=== PATIENT | male | born 1950 | race Caucasian/White ===

== ENCOUNTER 2024-11-19 07:15 | Day surgery (SDC) | payer MEDICARE, OTHER ==
[~2024-11-19] VITALS: Ht 175.3 cm; Wt 77.7 kg
[~2024-11-19 07:15] MED LIST: ALEVE220 M1; AMLODIPINE BES2.5 MG PO; CEFAZOLIN SODIUM 2 GM/20 ML SYR IV SCH; EZETIMIBE-SIMV1 EACH PO; IBLOOD GLUCOSE TEST STRIP 1 EA TEST VI PRN; ISOSORBIDE MONO30 MG PO; LACTATED RINGER'S 1,000 ML IV SCH; LEVOTHYROXINE100 MC2 PO; LIDOCAINE HCL 1% 5 ML SDV INJ ONE; LIPITOR40 MG PO; LOW DOSE ASPIRI81 MG PO
[2024-11-19 07:48] VITALS: BP 126/66
[2024-11-19] MEDS ORDERED: MIDAZOLAM HCL 2 MG/2 ML VIAL ONE (07:53)
[2024-11-19] MEDS ORDERED: Ropivacaine HCl 0.5% 30 ML VIAL ONE (07:54)
[2024-11-19] MEDS ORDERED: DEXAMETHASONE SOD PHOS 4 MG/ML VIAL ONE (07:54)
[2024-11-19] MEDS ORDERED: dexmedeTOMIDine HCl 200 MCG/2 ML VIAL ONE (07:54)
[2024-11-19] MEDS ORDERED: LIDOCAINE HCL 2% 5 ML SDV ONE ×2 (07:54→09:33)
--- NOTE | 2024-11-19 07:57 | NUR ---
AT BS. MAY GO TO [place].
--- NOTE | 2024-11-19 09:24 | NUR ---
JOY AND DR ART HAVE BEEN IN TO TALK WITH PT.
[2024-11-19] MEDS ORDERED: propofoL 200 MG/20 ML VIAL ONE (09:33)
[2024-11-19] MEDS ORDERED: TRAMADOL HCL 50 MG TAB PO PRN (09:45)
[2024-11-19] MEDS ORDERED: ondansetron HCL 4 MG/2 ML VIAL ONE (09:51)
[2024-11-19] MEDS ORDERED: droPERidol 5 MG/2 ML VIAL IV PRN (10:00)
[2024-11-19] MEDS ORDERED: ondansetron HCL 4 MG/2 ML VIAL IV PRN (10:00)
[2024-11-19] MEDS ORDERED: PROCHLORPERAZINE EDISYLATE 10 MG/2 ML VIAL IV PRN (10:00)
[2024-11-19] MEDS ORDERED: NALOXONE HCL 0.4 MG SYR IV PRN (10:00)
[2024-11-19] MEDS ORDERED: fentaNYL citrate 50 MCG/ML SDV IV PRN (10:00)
[2024-11-19] MEDS ORDERED: IBLOOD GLUCOSE TEST STRIP 1 EA TEST VI PRN (10:00)
[2024-11-19] MEDS ORDERED: DICLOFENAC SODI75 MG PO (10:30)
[2024-11-19] MEDS ORDERED: TRAMADOL HCL50 MG PO (10:31)
--- NOTE | 2024-11-19 10:53 | NUR ---
11/19/24 Ashutosh3 Ana Cabezas 1038 PT TO PACU AWAKE CONVERSING WITH STAFF PT DENIES PAIN AND NAUSEA.
[2024-11-19 11:19] VITALS: BP 139/76
[2024-11-19] MEDS ORDERED: DICLOFENAC SOD 75 MG TABEC PO SCH (21:00)
--- NOTE | 2024-11-20 11:45 | OR ---
[facility] [address] [place], [place] [address] Signed DATE OF OPERATION: 11/19/2024 SURGEON: Cadence Cabezas MD PREOPERATIVE DIAGNOSIS: Fourth metacarpal fracture right displaced. POSTOPERATIVE DIAGNOSIS: Fourth metacarpal fracture right displaced. PROCEDURE PERFORMED: Open reduction and internal fixation, right 4th metacarpal. WAFER PRODUCTION WORKER: Mihaela Donald PA-C. Mihaela was present and critical for all portions of procedure. ANESTHESIA: General. BLOOD LOSS: None. TOURNIQUET TIME: 25 minutes. IMPLANTS: A six hole 1.5 T-plate. BRIEF HISTORY: Carlos is a 74-year-old gentleman who had his hand caught in a drill when it twisted him around fracturing his finger. Risks and benefits of operative treatment were discussed with him. He elected to proceed. DESCRIPTION OF PROCEDURE: Once consent was obtained, he was taken to the operating room. After adequate anesthesia, he was placed on the operating room table. All downside pressure points were well padded. A well-padded proximal arm tourniquet was placed. The arm was then prepped and draped in a standard sterile fashion, exsanguinated using Esmarch bandage and tourniquet inflated to 200 mmHg. The dorsal approach to the 4th metacarpal shaft Electronically Signed By: CADENCE CABEZAS MD 11/20/24 1145 PATIENT NAME: GAMA VASQUEZN OPERATIVE REPORT DATE OF : 50 REPORT #: [id number] PHYSICIAN: CADENCE CABEZAS MD PCP: ADELIA SMITH MD REPORT IS CONFIDENTIAL AND NOT TO BE RELEASED WITHOUT AUTHORIZATION [facility] [address], [place] [address] Signed was taken through skin, subcutaneous tissue with care taken to protect the extensor tendons. These were identified, retracted, and protected. The fracture was identified with some difficulty and using longitudinal traction and a clamp, the fracture was reduced and checked on the image intensifier and found to be anatomic. The fracture was then pinned with a 1.25 K-wire. The T-plate was then fashioned to fit the dorsum of the metacarpal from just proximal to the metacarpal head running proximally. This was checked using image intensifier and two screws were placed. Again, the position and alignment were checked and found to be good. The remaining screw holes were drilled and appropriate length screws were placed. Final radiographs showed good reduction and good plate placement and screw lengths. The pin was removed and the wound was copiously irrigated with normal saline. The periosteum was closed over the plate using 3-0 Monocryl. Subcutaneous tissue with 3-0 Monocryl and the skin with 3-0 Stratafix. The wound was sealed with LiquiBand and dressed with Allevyn. He was placed in the boxer's brace and taken to the recovery room in satisfactory condition. All sponge, needle, and instrument counts were correct. Cadence Cabezas MD BA/ADWOAL /[id number] Copies: ~ Electronically Signed By: CADENCE CABEZAS MD 11/20/24 1145 PATIENT NAME: GAMA VASQUEZ MARGARITA OPERATIVE REPORT DATE OF : 50 REPORT #: [id number] PHYSICIAN: CADENCE CABEZAS MD PCP: ADELIA SMITH MD REPORT IS CONFIDENTIAL AND NOT TO BE RELEASED WITHOUT AUTHORIZATION
== END 2024-11-19 11:35 | disposition home or self-care (01) ==
LOC: DS 07:15
PROVIDERS: ATTEND Specialist
PROC: 0PSP04Z Reposition Right Metacarpal with Internal Fixation Device, Open Approach (ICD-10-PCS; principal; 2024-11-19 09:30)
DX: S62.324A Displaced fracture of shaft of fourth metacarpal bone, right hand, initial encounter for closed fracture (principal); Z79.82 Long term (current) use of aspirin; Z88.5 Allergy status to narcotic agent; X50.1XXA Overexertion from prolonged static or awkward postures, initial encounter
CPT/HCPCS: 01830; 73120; C1713; J0690; J1100; J2003; J2250; J2405; J2704; J2795; J7121